=== PATIENT | female | born 1960 | race Caucasian/White ===

== ENCOUNTER 2023-08-26 18:00 | Observation (INO) | payer MEDICARE, SELFPAY ==
[2023-08-26] VITALS (10 sets, daily range): BP systolic 160–200; BP diastolic 79–92; PULSE 52–60; RESP 12–25; TEMP 36.7; O2SAT 92–98; BMI 23.5; BMI 22.3
--- NOTE | 2023-08-26 18:14 | XR_ITS ---
The [address] [address] Patient Name: HEBERT LANE MRN: [id number] date: 1960 Sex: F Assigned Patient Location: ER Current Patient Location: ED.MAIN Accession/Order Number: [id number] Exam Date: 08/26/2023 18:50 Report Date: 08/26/2023 19:13 At the request of: LISA BECERRA Procedure: XR chest 1V EXAM: XR chest 1V at 1852 hours HISTORY: altered MS COMPARISON: None. TECHNIQUE: AP upright portable chest x-ray FINDINGS: Opacity is seen at the right lower lung compatible with an infiltrate. The right upper and the left lung are clear and there is no evidence of an effusion or pneumothorax. The heart is not enlarged and the vasculature is not distended. The osseous structures are grossly intact. XR/XR chest 1V IMPRESSION: The appearance of the right lung base is compatible with an infiltrate. There is no evidence of overt cardiac decompensation. Comparison with a previous study may be helpful in determining the chronicity of these findings. If further evaluation of the chest is clinically indicated at this time than perhaps a CT scan of the chest would be helpful. Electronically authenticated by: PRUDENCIO BENAVIDES Date: 08/26/2023 19:13
--- NOTE | 2023-08-26 18:14 | ECG_ITS ---
The [facility] Test Date: 2023-08-26 Pat Name: HEBERT LANE Department: Room: - Gender: Female Category Analyst: : 1960 Requested By: [id number] Order Number: [id number] Reading MD: JEANETTE ODOM Measurements Intervals [place] Rate: 52 P: 61 NV: 132 QRS: 8 QRSD: 92 T: -34 QT: 510 QTc: 491 Interpretive Statements 1100 Sinus rhythm 2440 Incomplete right bundle branch block 4564 Twave abnormality, possible lateral ischemia 9150 abnormal ECG No previous ECG available for comparison Electronically Signed On 08-27-2023 7:04:57 EDT by JEANETTE ODOM
--- NOTE | 2023-08-26 18:15 | CT_ITS ---
The [address] [address] Patient Name: HEBERT LANE MRN: [id number] date: 1960 Sex: F Assigned Patient Location: ED.MAIN Current Patient Location: Accession/Order Number: [id number] Exam Date: 08/26/2023 18:42 Report Date: 08/26/2023 19:18 At the request of: LISA BECERRA Procedure: CT head/brain wo con EXAM: CT head/brain wo con HISTORY: altered MS COMPARISON: None. TECHNIQUE: Axial CT scans through the head were obtained without IV contrast administration. Dose reduction techniques were achieved by using: automated exposure control and/or adjustment of mA and /or kV according to patient size and/or use of iterative reconstruction technique. FINDINGS: There is no acute intracranial hemorrhage or abnormal extra-axial fluid collection. No mass effect or midline shift is seen. There is no evidence of large acute territorial infarction. There is no hydrocephalus. To the limit of CT, the posterior fossa appears unremarkable. The calvaria and extra cranial soft tissues are unremarkable. The visualized orbits show no abnormal mass. There is small air-fluid level in the right sphenoid sinus and mild mucosal thickening.. Mastoid air cells are clear. CT/CT head/brain wo con IMPRESSION: No acute intracranial process. If there is sufficient clinical concern for acute brain parenchymal pathology, consider MRI for further evaluation. Incidental acute right sphenoid sinusitis. Electronically authenticated by: WILBERT UNLU Date: 08/26/2023 19:18
--- NOTE | 2023-08-26 18:18 | ED.GENADUL1 ---
HPI - General Adult General Chief complaint: Weakness Stated complaint: STROKE Time Seen by Provider: 08/26/23 18:02 Source: patient Mode of arrival: walk-in History of Present Illness HPI narrative: 62-year-old female presents to the emergency department for weakness. She is a poor historian. She states she was at home and she had trouble getting up the stairs because she was weak. She is worried she had a stroke. She doesn't have any localized weakness and doesn't complain of a headache. No vomiting or diarrhea and denies alcohol use. Symptoms seemed to started today. Related Data Allergies Allergy/AdvReac Type Severity Reaction Status Date / Time penicillin G AdvReac Intermediate Verified 08/26/23 18:10 Review of Systems ROS Narrative A ten point review of systems is negative except as noted above. PFSH PFSH Social History Smoking status: Former smoker Exam Narrative Exam Narrative: Nurses note and vital signs reviewed and patient is not hypoxic. General: The patient appears well and in no apparent distress. Patient is resting comfortably on cart. Skin: Warm, dry, no pallor noted. There is no rash noted. Head: Normocephalic, atraumatic Eye: Normal conjunctiva, no drainage Ears, Nose, Mouth, and Throat: oral mucosa is lightly dry. Nares patent. Cardiovascular: Regular Rate and Rhythm Respiratory: Patient is in no distress, no accessory muscle use, lungs are clear to auscultation, no wheezing, rales or rhonchi Back: non-tender GI: soft and nontender Musculoskeletal: The patient has no evidence of calf tenderness, no pitting edema, symmetrical pulses noted bilaterally Neurological: A&O x4, normal speech; upper and lower extremity strength intact. No facial droop. Extraocular movements intact. Speech is slow and slightly difficult to understand. Psychiatric: Cooperative Constitutional Vital Signs, click to edit/add: Last Vital Signs Pulse 52 L 08/26/23 18:10 Resp 12 08/26/23 18:10 BP 197/89 H 08/26/23 18:10 Pulse Ox 98 08/26/23 18:10 O2 Del Method Room Air 08/26/23 18:10 Course Vital Signs Vital signs: Vital Signs Pulse Rate 52 L 08/26/23 18:10 Respiratory Rate 12 08/26/23 18:10 Blood Pressure 197/89 H 08/26/23 18:10 Pulse Oximetry 98 08/26/23 18:10 Oxygen Delivery Method Room Air 08/26/23 18:10 Pulse Rate 52 L 08/26/23 18:10 Respiratory Rate 12 08/26/23 18:10 Blood Pressure 197/89 H 08/26/23 18:10 Pulse Oximetry 98 08/26/23 18:10 Oxygen Delivery Method Room Air 08/26/23 18:10 Medical Decision Making MDM Narrative Medical decision making narrative: tests are ordered and the patient is signed out to Dr. Sharpe at 7 PM at change of shift. Differential Diagnosis Differential Diagnosis: medication side effect, stroke, hypoglycemia, altered mental status ECG Data Attestation: I personally reviewed and interpreted this ECG as follows: (EKG on my interpretation shows normal sinus rhythm without acute change and a rate of 52.) Discharge Plan Discharge Patient Disposition: Still a Patient
[2023-08-26 19:12] LABS: Basophils Absolute Auto 0.1 10^3/uL (0.0-0.1); Basophils Percent Auto 0.3 % (0.2-2.0); Eosinophils Absolute Auto 0.2 10^3/uL (0.0-0.7); Eosinophils Percent Auto 1.2 % (0.9-7.0); Hematocrit 42.8 % (36.0-48.0); Hemoglobin 14.4 g/dL (12.0-16.0); Immature Granulocytes Abs Auto 0.04 10^3/uL (0.00-0.03); Immature Granulocytes Pct Auto 0.3 % (0.0-0.5); Lymphocytes Absolute Auto 3.4 10^3/uL (1.2-3.8); Lymphocytes Percent Auto 23.7 % (20.5-60.0); Mean Corpuscular HGB Conc 33.6 g/dL (29.9-35.2); Mean Corpuscular Hemoglobin 34.2 pg (26.7-34.0); Mean Corpuscular Volume 101.7 fL (81.0-99.0); Mean Platelet Volume 9.5 fL (9.5-13.5); Monocytes Absolute Auto 1.4 10^3/uL (0.3-0.8); Neutrophils Absolute Auto 9.3 10^3/uL (1.4-6.5); Neutrophils Percent Auto 64.5 % (43.0-75.0); Platelet Count 346 10^3/uL (150-450); Red Blood Count 4.21 10^6/uL (4.20-5.40); Red Cell Distribution Width 13.8 % (11.0-15.0); White Blood Count 14.5 10^3/uL (4.0-11.0)
[2023-08-26 19:23] LABS: Anion Gap 10.9; BUN Creatinine Ratio 13.6; Calcium 8.8 mg/dL (8.5-10.1); Carbon Dioxide 30.3 mmol/L (21.0-32.0); Chloride 101 mmol/L (98-107); Estimated GFR (African America >60 (>=60); Estimated GFR (Non-African Ame >60 (>=60); Glucose 88 mg/dL (74-106); Potassium 4.2 mmol/L (3.5-5.1); Sodium 138 mmol/L (136-145)
[2023-08-26 19:31] LABS: Troponin I High Sensitivity 7.7 pg/mL (4.0-51.3)
[2023-08-26 19:49] LABS: Ethanol <3 mg/dL
[2023-08-26 20:03] LABS: Bilirubin Urine NEGATIVE (NEGATIVE); Blood Urine NEGATIVE (NEGATIVE); Clarity Urine CLEAR (CLEAR); Color Urine LT. YELLOW (YELLOW); Glucose Urine UA NEGATIVE (NEGATIVE); Ketones Urine NEGATIVE (NEGATIVE); Leukocyte Esterase Urine NEGATIVE (NEGATIVE); Nitrite Urine NEGATIVE (NEGATIVE); Protein Urine NEGATIVE (NEG/TRACE)
[2023-08-26] MEDS: LEVOFLOXACIN IN DEXTROSE 5 % 750 MG/150 ML IV.SOLN 100 MG IV (20:17)
[2023-08-26 20:19] LABS: Lactate/Lactic Acid 0.4 mmol/L (0.4-2.0)
[2023-08-26 20:21] LABS: Amphetamine Screen Urine NEGATIVE (NEGATIVE); Benzodiazepines Screen Urine NEGATIVE (NEGATIVE); Cannabinoid Screen Urine POSITIVE (NEGATIVE); Cocaine Screen Urine NEGATIVE (NEGATIVE); Methamphetamines Screen Urine NEGATIVE (NEGATIVE); Opiate Screen Urine NEGATIVE (NEGATIVE); Phencyclidine Screen Urine NEGATIVE (NEGATIVE); Tricyclic Antidepressant Urine NEGATIVE (NEGATIVE)
[2023-08-26 20:22] LABS: Barbiturates Screen Urine NEGATIVE (NEGATIVE); Buprenorphine Screen Urine NEGATIVE (NEGATIVE); Methadone Screen Urine NEGATIVE (NEGATIVE); Oxycodone Screen Urine NEGATIVE (NEGATIVE)
[2023-08-26 20:26] LABS: Bacteria Urine NONE SEEN #/HPF (NONE SEEN); Crystals Seen? None Seen #/HPF (None Seen); Mucus Urine NONE SEEN (NONE SEEN); RBC Urine NONE SEEN #/HPF (0-2); Squamous Epithelial Cell Urine RARE #/LPF (NONE/RARE); WBC Urine 0-2 #/HPF (NONE SEEN)
[2023-08-26 20:27] LABS: Cast Seen? NONE SEEN #/LPF (NONE SEEN)
--- NOTE | 2023-08-26 20:45 | XR_ITS ---
The [address] [address] Patient Name: HEBERT LANE MRN: [id number] date: 1960 Sex: F Assigned Patient Location: Current Patient Location: Accession/Order Number: [id number] Exam Date: 08/26/2023 23:59 Report Date: 08/27/2023 06:08 At the request of: FER FREITAS Procedure: XR chest 1V EXAM: XR chest 1V HISTORY: pneumonia COMPARISON: Chest x-ray, 08/26/2023. TECHNIQUE: AP upright portable chest radiograph. FINDINGS: The heart is mildly enlarged. The mediastinal contour and pulmonary vascularity are within normal limits. Right lower lung opacity with silhouetting of the right heart border favors right middle lobe pneumonia. Small effusion cannot be excluded. The right upper lobe and left lung remain clear. XR/XR chest 1V IMPRESSION: Findings favoring continued right middle lobe pneumonia and possible small pleural effusion, without interval change from yesterday. Follow-up to complete resolution is recommended. The lungs remain otherwise clear. Electronically authenticated by: DESMOND MANCERA Date: 08/27/2023 06:08
--- NOTE | 2023-08-26 20:50 | W.PM.TELEPN ---
Progress Note: Subjective Subjective Interval history: PCP is in [facility] but patient not able to provide name at interview. History is limited due to patient needing redirection to answer questions. PAtient lives at home with family and daughter brought to ED. Daughter reported patient complained of weakness. Patient became unable to care for self with associated weakness. though i cannot verify this it appears this has been progressing as oppoesed to acutely today. the patient complains at my interview of a headache and tinnitus but does not further elaborate. She is awake and alert to person place and time and event. + photophobia and phonobia. Ed work was negative for ICH on CT. wbc with lobar infiltrate is noted thus treated with levofloxacin. Urine tox + for cannabinoids and otherwise negative. Lactate and eleectrolytes are negative. PMH: HTN, HLD, fibromyalgia per my discussion with ED. Social hx and ROS are unable to be obtained at present Exam Constitutional Vital Signs, click to edit/add: Last Vital Signs Pulse 54 L 08/26/23 18:40 Resp 21 08/26/23 18:40 BP 160/90 H 08/26/23 19:48 Pulse Ox 94 L 08/26/23 18:40 O2 Del Method Room Air 08/26/23 18:10 Common normals: average body habitus Exam limitations: behavioral limitations Orientation/consciousness: Yes awake HENMT Common normals: normocephalic and head/scalp atraumatic Eye Common normals: PERRL (Nurse found patient photophobic with pinpoint pupils) Neck & C-Spine Common normals: full ROM Respiratory Common normals: normal respiratory effort Cardio Common normals: regular rate and regular rhythm GI Common normals: Normal to inspection, nondistended, normoactive bowel sounds present Neuro [place] Coma Scale: document GCS findings (no slurring of speech or hemiparesis) [place] coma scale eye opening: To sound (photophobia) [place] coma scale verbal response: Orientated [place] coma scale motor response: Obey commands [place] coma scale total score: 14 Sensorium/orientation: awake and alert Meningeal signs: no meningeal signs and nuccal rigidity Motor exam: other (has chronic tremors with spasms while i exam. these are chronic.) Progress Note: Objective Labs Labs: Short CBC 08/26/23 Range/Units 18:15 WBC 14.5 H (4.0-11.0) 10^3/uL Hgb 14.4 (12.0-16.0) g/dL Hct 42.8 (36.0-48.0) % Plt Count 346 (150-450) 10^3/uL BMP 08/26/23 18:15 Sodium 138 Potassium 4.2 Chloride 101 Carbon Dioxide 30.3 BUN 12.0 Creatinine 0.88 Glucose 88 Calcium 8.8 Urine 08/26/23 Range/Units 19:45 Urine Color Lt. yellow (YELLOW) Urine Clarity Clear (CLEAR) Urine pH 6.0 (5.0-9.0) Ur Specific [place] 1.010 (1.005-1.025) Urine Protein Negative (NEG/TRACE) mg/dL Urine Glucose (UA) Negative (NEGATIVE) mg/dL Progress Note: A&P Assessment and Plan (1) Weakness: (2) Pneumonia: Plan 1Pneumonia: Elevated WBC with findings on CXR. Will follow cxs as well as continue levofloxacin whilst daily labs and respiratory monitoring. I do not believe she is septic and as her mentation improves we can advance her diet as tolerated while giving IVF at this time. 2Weakness/headache/tinnitus: with her pupillary response, though alert and oriented, has complaints with bizarre behavior I have ordered an MRI of the brain. I do not suspect with her pupillary response pesticide toxicity. SAH is considered though low suspicion and with CT negative would not do immediate LP. Medication reaction is also considered and her home meds can help with the tinnititus (though nsaid she is on can also contirbute). Will avoid opoids for ADHIKARI at this time. Home meds for her chornic medical complaints and will use GI/DVT prophylaxis as per hospitalist admission orders. She will be OBS telemetry Should daughter contact health care team i will readily follow up with her for more information. Telemedicine Attestation Telemedicine Attestation I conducted this encounter from [Home office in [facility]] via secure live, [id number] video conference with the patient, located at [facility] with [Josselin]. Prior to the interview, the risks and benefits of telemedicine were discussed with the patient and verbal consent was obtained.
[2023-08-26] MEDS: 0.9 % SODIUM CHLORIDE 1,000 ML 100 ML IV (23:58)
[2023-08-27] VITALS (21 sets, daily range): BP systolic 107–184; BP diastolic 62–81; PULSE 50–70; RESP 17–22; TEMP 36.6–36.7; O2SAT 90–99
[2023-08-27] MEDS: TIZANIDINE HCL 4 MG TABLET PO ×4 (00:21→21:12)
[2023-08-27] MEDS: GABAPENTIN 300 MG CAPSULE 600 MG PO ×3 (00:21→13:04)
[2023-08-27] MEDS: ATORVASTATIN CALCIUM 20 MG TABLET PO ×2 (00:21→21:12)
[2023-08-27] MEDS: CARVEDILOL 6.25 MG TABLET PO ×3 (00:22→21:12)
[2023-08-27 05:42] LABS: Basophils Absolute Auto 0.1 10^3/uL (0.0-0.1); Basophils Percent Auto 0.5 % (0.2-2.0); Eosinophils Absolute Auto 0.1 10^3/uL (0.0-0.7); Eosinophils Percent Auto 0.9 % (0.9-7.0); Hematocrit 38.6 % (36.0-48.0); Immature Granulocytes Abs Auto 0.07 10^3/uL (0.00-0.03); Immature Granulocytes Pct Auto 0.5 % (0.0-0.5); Lymphocytes Absolute Auto 2.6 10^3/uL (1.2-3.8); Lymphocytes Percent Auto 19.8 % (20.5-60.0); Mean Corpuscular HGB Conc 33.7 g/dL (29.9-35.2); Mean Corpuscular Hemoglobin 34.5 pg (26.7-34.0); Mean Corpuscular Volume 102.4 fL (81.0-99.0); Monocytes Absolute Auto 1.4 10^3/uL (0.3-0.8); Monocytes Percent Auto 10.3 % (1.7-12.0); Platelet Count 323 10^3/uL (150-450); Red Blood Count 3.77 10^6/uL (4.20-5.40); Red Cell Distribution Width 13.9 % (11.0-15.0); White Blood Count 13.2 10^3/uL (4.0-11.0)
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
--- NOTE | 2023-08-27 06:12 | PC.NURSE ---
Patient became angry at this public relations writer for her Gabapentin prescription. I explained to patient her order reads 600 MG . She became agitated with this public relations writer, raising her voice and yelling your a professional, your not allowed to change my prescription . I am supposed to take 2, 600 mg tablets at a time equaling 1200mg at a time This RN explained I am following the Doctors orders hat they placed. Patient raised voice even more yelling Your not allowed to do that . This public relations writer looked at home meds and rx bottle says take 1 capsule four times a day as needed. 600MG tablets. This RN explained the Doctor will be in soon for rounds and we can bring it back up with him. Call light within reach, all four rails up, bed alarm on.
[2023-08-27 06:23] LABS: Alanine Aminotransferase 20 U/L (14-59); Albumin Level 2.9 g/dL (3.4-5.0); Alkaline Phosphatase 80 U/L (46-116); Anion Gap 9.6; Aspartate Amino Transferase 14 U/L (15-37); BUN Creatinine Ratio 12.5; Bilirubin Total 0.5 mg/dL (0.2-1.0); Calcium 8.3 mg/dL (8.5-10.1); Carbon Dioxide 29.3 mmol/L (21.0-32.0); Chloride 105 mmol/L (98-107); Estimated GFR (African America >60 (>=60); Estimated GFR (Non-African Ame >60 (>=60); Glucose 84 mg/dL (74-106); Magnesium 1.8 mg/dL (1.8-2.4); Potassium 3.9 mmol/L (3.5-5.1); Sodium 140 mmol/L (136-145); Total Protein 5.9 g/dL (6.4-8.2)
[2023-08-27] MEDS: AMLODIPINE BESYLATE 5 MG TABLET 2.5 MG PO (09:31)
[2023-08-27] MEDS: DULOXETINE HCL 60 MG CAPSULE.DR PO (09:32)
[2023-08-27] MEDS: ENOXAPARIN SODIUM 40 MG/0.4 ML SYRINGE SUBQ (09:32)
[2023-08-27] MEDS: HYDRALAZINE HCL 20 MG/ML VIAL 10 MG IVP (09:35)
[2023-08-27 09:38] LABS: Estimated Average Glucose 114 mg/dL; Glycohemoglobin A1C 5.6 % (4.5-6.2)
[2023-08-27 09:48] LABS: Chol HDL Ratio 2.9; Cholesterol 124 mg/dL (<=200); HDL Cholesterol 43 mg/dL (40-60); LDL Cholesterol Calculated 56.6 mg/dL; Thyroid Stimulating Hormone 0.734 uIU/mL (0.358-3.740); Triglycerides 122 mg/dL (<=150); VLDL CHOLESTEROL 24.4 mg/dL
[2023-08-27 11:13] LABS: Ammonia 24 umol/L (11-32)
--- NOTE | 2023-08-27 11:29 | SWNOTE1 ---
SW met with pt to discuss dc need. Pt was drowsy, knew she was at hospital, but stated she has a headache. SW did ask if she was alright with SW asking questions or if she wanted SW to wait. Pt voiced being ok to move forward with questions. Pt is living at her daughter's and sleeping on the couch. Pt is trying to move to [place] into metro housing, has been working on this, but was told it would be a year. SW to look over housing information and provide pt with the list SW has. Pt stated it is hard to get to [place] to talk with jobs and family services in regards to metro housing, SW recommended calling to see if they can assist over the phone. SW to provide numbers as well and transport information. Pt has expressed being frustrated as she is living with her daughter and wants her own place. SW asked pt if she is feeling depressed and if she has been to counseling? Pt voiced she was 13 years ago, but she is NOT interested in going back and does not want any phone numbers. SW did let her know it may be beneficial to go to counseling again to help her through situation. Pt is not interested. SW also addressed pt being positive for marijuana. Pt voiced she uses marijuana for pain. SW asked where the pain was and she stated everywhere. SW asked if she has medical marijuana card and she does not. Pt has no plans of stopping marijuana use. SW to bring housing resources and transport resources.
[2023-08-27 11:44] LABS: ABG PCO2 39.1 mmHg (35.0-45.0); Allen Test POS (POSITIVE); Base Excess ABG 5.4 mmol/L (-2.0-2.0); O2 Mode ROOM AIR; Oxygen Saturation ABG 93.4 %; PO2 ABG 58.2 mmHg (80.0-100.0); pH ABG 7.478 (7.350-7.450)
[2023-08-27 11:45] LABS: Puncture Site LEFT RADIAL
[2023-08-27] MEDS: ARIPIPRAZOLE 5 MG TABLET PO (11:47)
--- NOTE | 2023-08-27 11:47 | CT_ITS ---
[address] [address] Patient Name: HEBERT LANE MRN: [id number] date: 1960 Sex: F Assigned Patient Location: Current Patient Location: Accession/Order Number: [id number] Exam Date: 08/27/2023 13:48 Report Date: 08/27/2023 14:15 At the request of: VU BURR Procedure: CT chest w con EXAM: CT chest w con; [id number] REASON FOR EXAM: hypoxia TECHNIQUE: Helical CT images of the chest were obtained after the administration of IV contrast. Multiplanar reformats and maximum intensity projection images were generated at the scanner. Dose reduction technique used: Automated exposure control and/or adjustment of the mA and/or kV according to patient size and/or use of iterative reconstruction technique. COMPARISON: Chest x-rays 08/27/2023 and 08/26/2023. FINDINGS: Chest: Support devices: None. Visualized Thyroid: No nodules. Chest wall: Within normal limits. Emiliana/mediastinum/esophagus: No mass. Thoracic lymph nodes: No enlarged supraclavicular, mediastinal, hilar or axillary lymph nodes. Heart and vasculature: -No pericardial effusion or aortic aneurysm. -No pulmonary embolism. -No aortic dissection. Visualized portions of the upper abdomen: Within normal limits. Musculoskeletal: No acute abnormality or suspicious osseous lesion. Lungs/airways: -No significant nodule or infiltrate. -The central airways are patent. Pleura: -Large fat-containing diaphragmatic hernia arising from the anteromedial aspect of the right hemidiaphragm (for example series 2 image 92 and series 6 image 14). -No pleural effusion or pneumothorax. CT/CT chest w con IMPRESSION: 1. 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 2. No evidence of pneumonia or other acute cardiopulmonary abnormality. Electronically authenticated by: ARPITA CHESTER Date: 08/27/2023 14:15
--- NOTE | 2023-08-27 12:07 | P.HP_ITS ---
patient was also seen and examined by me at the time of admission note. lab and radiology Results, charts, notes were also reviewed and i agree with the above findings. H&P: HPI History of Present Illness Chief complaint: Ac Encephalopathy, CAP, Gen. Weakness Narrative: Date/Time of exam: 08/27/23 1015 This is a 62-year-old female patient with a past medical history as outlined below including fibromyalgia/chronic pain, hypertension, CAD with history of STEMI, and chronic tobacco abuse; who was brought to the ED by family member yesterday evening with complaints of possible stroke. The patient reportedly was increasingly weak and unable to ambulate normally and felt she may be having a stroke. She presented to the ED for further evaluation Work-up in the ED was negative for acute intracranial abnormality on CT other than incidental finding of sphenoid sinusitis. Chest x-ray revealed right middle lobe pneumonia. Labs revealed leukocytosis (14.5) but were otherwise unremarkable. The patient was noted to be somewhat confused and a poor historian of unclear etiology or chronicity. She was admitted to the hospitalist service under observation for community-acquired pneumonia, acute metabolic encephalopathy, and further CVA work-up including MRI of the brain. At the time of my exam the patient is resting in bed with her eyes closed. She answers questions mostly appropriately, but does not fully open her eyes throughout my exam. She states that her speech is abnormal. She has difficulty describing her abnormality of speech but appears that it is somewhat slurred although true dysarthria is not appreciated on exam. The patient is unable to describe symptoms that are acute versus chronic or time of symptom onset. Her behavior is more consistent with intoxication than dysarthria or CVA Sequelae, but this cannot be definitively ruled out. UDS in the ED was only positive for cannabinoids so acute intoxication is not clinically suspected at this time. We will obtain an ABG and an ammonia level to rule out metabolic etiology of the patient's altered mentation. We will also obtain a CT of the chest to more fully evaluate her pneumonia versus other pathologies. ADDENDUM 1400: The pt reports that she has not been able to refill her Abilify for an unknown period of time. We clinically suspect that her encephalopathy, agitation, and irritability may be d/t acute withdrawal symptoms from Abilify. Review of Systems ROS Status of ROS 10 or more systems reviewed and unremarkable except as noted in history and below PFSH PFSH Medical History (Updated 08/28/23 @ 07:38 by Natalie Yip NP) CAD (coronary artery disease) ?I25.10 - Atherosclerotic heart disease of [place] coronary artery without angina pectoris (ICD-10) Fibromyalgia ?M79.7 - Fibromyalgia (ICD-10) Hypertension ?I10 - Essential (primary) hypertension (ICD-10) Neuropathy ?G62.9 - Polyneuropathy, unspecified (ICD-10) Scoliosis ?M41.9 - Scoliosis, unspecified (ICD-10) Spinal stenosis ?M48.00 - Spinal stenosis, site unspecified (ICD-10) ST elevation (STEMI) myocardial infarction of unspecified site ?I21.3 - ST elevation (STEMI) myocardial infarction of unspecified site (ICD- 10) Tic disorder, unspecified ?F95.9 - Tic disorder, unspecified (ICD-10) Surgical History (Updated 08/28/23 @ 07:38 by Natalie Yip NP) H/O eye surgery ?Z98.890 - Other specified postprocedural states (ICD-10) H/O tubal ligation ?Z98.51 - Tubal ligation status (ICD-10) History of foot surgery ?Z98.890 - Other specified postprocedural states (ICD-10) Family History (Updated 08/26/23 @ 22:26 by Josselin Cyr RN) Grandmother Family history of CHF (congestive heart failure) Mother Family history of stroke Social History (Updated 08/27/23 @ 05:54 by Josselin Cyr RN) Within the past year, how often did you have a drink containing alcohol: never Score interpretation: A score less than 3 is consistent with normal alcohol consumption. Smoking status: Former smoker Non-prescribed substance use: cannabis (any form) Previous occupational history: N/A Highest level of school completed/degree received: 12th grade, no diploma Are you now , , , , never or living with a partner: In a typical week, how many times do you talk on the telephone with family, friends, or neighbors: 3 or more times per week How often do you get together with friends or relatives: 3 or more times per week How often do you attend anglican or lutheran services: never Little interest or pleasure in doing things: several days Feeling down, depressed, or hopeless: several days Feel stressed/tense/nervous/anxious/difficulty sleeping: rather much Life stressor details: Boyfriend kicks her out Gender Identity: female Meds Home Medications and Allergies Home Medications Medication Instructions Recorded Confirmed Type acetaminophen 650 mg 650 mg PO Q8H PRN pain 08/26/23 08/26/23 History tablet,extended release (8 Hour Pain Reliever) amlodipine 2.5 mg tablet 2.5 mg PO DAILY 08/26/23 08/27/23 History atorvastatin 20 mg tablet 20 mg PO DAILY 08/26/23 08/26/23 History carvedilol 6.25 mg tablet 6.25 mg PO Q12H 08/26/23 08/26/23 History celecoxib 100 mg capsule 100 mg PO Q24H 08/26/23 08/26/23 History duloxetine 60 mg capsule,delayed 60 mg PO DAILY 08/26/23 08/26/23 History release gabapentin 600 mg tablet 600 mg PO QID 08/26/23 08/27/23 History tizanidine 4 mg tablet 4 mg PO Q8H PRN muscle spasticity 08/26/23 08/27/23 History aripiprazole 5 mg tablet (Abilify) 5 mg PO DAILY 08/27/23 08/27/23 History Allergies Allergy/AdvReac Type Severity Reaction Status Date / Time penicillin G AdvReac Intermediate Verified 08/26/23 18:10 Exam Constitutional Vital Signs, click to edit/add: Last Vital Signs Temp 97.9 F 08/27/23 05:11 Pulse 70 08/27/23 11:15 Resp 20 08/27/23 11:15 BP 155/79 H 08/27/23 11:15 Pulse Ox 94 L 08/27/23 11:15 O2 Del Method Room Air 08/27/23 11:15 Common normals: no apparent distress and well nourished General appearance: cooperative, anxious and lethargic [facility] Common normals: normocephalic, head/scalp atraumatic, hearing grossly normal bilaterally, external ears normal, external nose normal and moist oral mucous membranes Head and scalp: normocephalic and atraumatic Face and sinus: normal facial exam Nose: external nose normal External ear: external ears normal Eye Common normals: PERRL, EOMs intact bilaterally, conjunctivae normal and no scleral icterus General eye: normal appearance of both eyes Alignment: alignment normal Eyelid: eyelids normal Conjunctiva: conjunctiva(e) normal Pupil: PERRL Neck & C-Spine Common normals: full ROM, supple and no JVD Chest Common normals: inspection of chest normal Chest: symmetrical chest wall rise Respiratory Common normals: normal respiratory effort, no retractions and no use of accessory muscles Effort & inspection: able to speak in complete sentences Auscultation: wheezes (Scattered throughout mild I&E) and diminished lung sounds (RML) Cardio Common normals: no JVD, regular rate, regular rhythm, S1 normal heart sound, S2 normal heart sound, no gallops, no clicks, no murmurs, no rub and peripheral pulses 2+ throughout Rate: regular rate Rhythm: regular rhythm Heart sounds: S1 normal and S2 normal Peripheral pulses: pulses 2+ throughout GI Common normals: Normal to inspection, nondistended, normoactive bowel sounds present, soft to palpation, non-tender, no hepatosplenomegaly, no masses and no bruits Palpation: soft and no hepatosplenomegaly Bladder/kidney exam: bladder normal to palpation Back & Pelvis Common normals: thoracic and lumbar spine normal to inspection Extremity Common normals: normal capillary refill and no pedal edema General: normal exam except as noted; no clubbing and no cyanosis Neuro [place] Coma Scale: GCS not evaluated Common normals: CN's II-XII intact bilaterally, moves all extremities, no focal motor deficits and no sensory deficits noted Sensorium/orientation: lethargic and somnolent Speech: abnormal speech Details: slurred (more consistent w/ intoxication, rather than true dysarthria) Motor exam: strength 5/5 throughout Psych Appearance: grossly normal Attitude: agitated (intermittently w/ painful lab draws) Speech: slurred Mood and affect: irritable and flat affect Thought process: disorganized and confused Attention/concentration: attention grossly impaired Memory/cognition: memory grossly impaired (Very poor recall of recent events) Impaired memory type(s): short term Insight: limited Judgement: limited Results Labs Labs: Short CBC 08/26/23 08/27/23 Range/Units 18:15 05:06 WBC 14.5 H 13.2 H (4.0-11.0) 10^3/uL Hgb 14.4 13.0 (12.0-16.0) g/dL Hct 42.8 38.6 (36.0-48.0) % Plt Count 346 323 (150-450) 10^3/uL BMP 08/26/23 08/27/23 18:15 05:02 Sodium 138 140 Potassium 4.2 3.9 Chloride 101 105 Carbon Dioxide 30.3 29.3 BUN 12.0 11.0 Creatinine 0.88 0.88 Glucose 88 84 Calcium 8.8 8.3 L Liver Function 08/27/23 Range/Units 05:02 Total Bilirubin 0.5 (0.2-1.0) mg/dL AST 14 L (15-37) U/L ALT 20 (14-59) U/L Alkaline Phosphatase 80 (46-116) U/L Albumin 2.9 L (3.4-5.0) g/dL Urine 08/26/23 Range/Units 19:45 Urine Color Lt. yellow (YELLOW) Urine Clarity Clear (CLEAR) Urine pH 6.0 (5.0-9.0) Ur Specific [place] 1.010 (1.005-1.025) Urine Protein Negative (NEG/TRACE) mg/dL Urine Glucose (UA) Negative (NEGATIVE) mg/dL ABG ABG results: 08/27/23 11:32 ABG pH 7.478 H ABG pCO2 39.1 ABG pO2 58.2 L ABG HCO3 29.0 H ABG O2 Saturation 93.4 ABG Base Excess 5.4 H Pulse Oximetry Attestation: I have reviewed the pertinent pulse oximetry results. Assessment and Plan Assessment and Plan (1) Pneumonia: Assessment and Plan: ACUTE * Adm observation * RML infiltrate on CXR w/ corresponding leukocytosis * Pt afebrile, BP stable, Lactic acid WNL - Sepsis not clinically suspected at this time * Borderline hypoxia but not requiring O2 supplementation to date * O2 prn to keep sats > 90% * ABG - PO2 58, but sats remain above 90% * Continue Levaquin as initiated in the ED - convert to PO as equally bioavailable * Consider CT chest today pending clinical course * Repeat CXR in AM to monitor * CBC, CMP daily (2) Acute sinus infection: Assessment and Plan: ACUTE * Incidental finding on CT brain * Pt c/o persistent headache which may be related to acute sinusitis * Adequate treatment w/ Levaquin as noted above * Add Flonase d/t c/o of congestion (3) Weakness: Assessment and Plan: ACUTE * Unclear etiology - r/o acute cva vs other metabolic or iatrogenic causes including med SE * No focal deficits noted on exam * Equivocal slurred speech not highly correlative w/ neurologic etiology * MRI brain today * PT/OT consult * Consider SNF for strengthening at discharge pending clinical course * Generalized weakness complicated by chronic pain/fibromialgia (4) Acute metabolic encephalopathy: Assessment and Plan: ACUTE * Unclear etiology * No evidence of acute intoxication on work up and sx are not highly suspicious for acute CVA * MRI brain today for definitive CVA work up * Add ABG to r/o CO2 narcosis and Ammonia level to AM labs - treat as indicated ADDENDUM 1400: Pt reports Abilify prescription has run out and she's been unable to refill. Unknown how long she has been off of abilify, but her encephalopathy, irritability, and restlessness could be 2/2 to acute withdrawal symptoms. Abilify has been ordered per her previous regimen. Monitor response (5) Fibromyalgia: Assessment and Plan: CHRONIC * Continue home gabapentin and xanaflex (6) CAD (coronary artery disease): Assessment and Plan: CHRONIC * Continue home amlodpine, statin, Coreg (7) Tic disorder, unspecified: Assessment and Plan: CHRONIC * Continue home abilify * abrupt discontinuation of Abilify is possible etiology of her metabolic e ncephalopathy
[2023-08-27] MEDS: DIAZEPAM 5 MG/ML - 2 ML INJ SYRINGE IV (12:46)
--- NOTE | 2023-08-27 12:46 | CM.NOTE ---
Rounds made with Dr. Patel, discussed with pt about further testing and plan of care. No discharge today.
[2023-08-27] MEDS: 0.9 % SODIUM CHLORIDE 1,000 ML 20 ML IV (12:47)
--- NOTE | 2023-08-27 13:58 | SWNOTE1 ---
SW spoke to nurse practitioner due to concerns about pt's living situation. SW did let her know SW did address with pt, and SW will address with daughter as well. GRAIN ELEVATOR SUPERINTENDENT concerned possible need for placement, but pt may not be agreeable.
--- NOTE | 2023-08-27 14:40 | SWNOTE1 ---
Pt has nobody listed to contact in computer system or on face sheet. SW to check paper chart.
--- NOTE | 2023-08-27 15:27 | SWNOTE1 ---
I spoke with 220's grand- daughter (that is who she lives with), Everything is going fine at home for them. We got disconnected and I am going to call her back. She said her biggest concern is that she is sleeping more and how she has been talking and not being able to get around very well, weakness. She said she had hand foot and mouth 2 weeks ago and she went to live with a friend in [place]. The grand-daughter does have little children so she did not want her to stay while she had HFM. She is working on getting housing in [place]. The grand-daughter did ask what is going on medically with her, I let her know we are attempting to figure this out. SW did let grand-daughter know pt has been getting agitated.
[2023-08-27] MEDS: IPRATROPIUM/ALBUTEROL SULFATE 3 ML AMPUL.NEB IH ×3 (15:32→23:40)
--- NOTE | 2023-08-27 16:12 | RESP.RT ---
Patient is to be on 2L via NC per doctors request due to ABG results. I went into patient's room to give treatment and she was not wearing O2. Talked to the patient and patient agreed to wear the O2.
--- NOTE | 2023-08-27 16:24 | CM.NOTE ---
Medicare Outpatient Observation Notice discussed with pt, pt verbalizes understanding and signs paper. Original given to pt and copy placed in pt's chart.
[2023-08-27] MEDS: TRAMADOL HCL 50 MG TABLET 100 MG PO (16:34)
[2023-08-27 17:32] LABS: Adenovirus NOT DETECTED (NOT DETECTE); Bordetella parapertussis NOT DETECTED (NOT DETECTE); Coronavirus 229E NOT DETECTED (NOT DETECTE); Coronavirus HKU1 NOT DETECTED (NOT DETECTE); Coronavirus NL63 NOT DETECTED (NOT DETECTE); Coronavirus OC43 NOT DETECTED (NOT DETECTE); Human Metapneumovirus NOT DETECTED (NOT DETECTE); Human Rhinovirus/Enterovirus NOT DETECTED (NOT DETECTE); Influenza A NOT DETECTED (NOT DETECTE); Influenza B NOT DETECTED (NOT DETECTE); Mycoplasma pneumoniae NOT DETECTED (NOT DETECTE); Parainfluenza Virus 1 NOT DETECTED (NOT DETECTE); Parainfluenza Virus 2 NOT DETECTED (NOT DETECTE); Parainfluenza Virus 3 NOT DETECTED (NOT DETECTE); Parainfluenza Virus 4 NOT DETECTED (NOT DETECTE); Respiratory Syncytial Virus NOT DETECTED (NOT DETECTE); SARS-CoV-2 NOT DETECTED (NOT DETECTE)
[2023-08-27] MEDS: LEVOFLOXACIN 750 MG TABLET PO (19:31)
[2023-08-27] MEDS: GABAPENTIN 400 MG CAPSULE 1200 MG PO (21:12)
[2023-08-27] MEDS: FLUTICASONE PROPIONATE 50 MCG NASAL SPRAY 1 SPRAY NS (21:12)
--- NOTE | 2023-08-27 23:38 | MR_ITS ---
The [address] [address] Patient Name: HEBERT LANE MRN: [id number] date: 1960 Sex: F Assigned Patient Location: [place] Current Patient Location: [place] Accession/Order Number: [id number] Exam Date: 08/27/2023 13:00 Report Date: 08/27/2023 14:04 At the request of: FER FREITAS Procedure: MR head/brain wo con EXAM: MR head/brain wo con CLINICAL INDICATION: tinnitus, headache, weakness following work up CVA COMPARISON: CT head 08/26/2023 TECHNIQUE/PROTOCOL: Standard noncontrast protocol brain MRI performed (Sagittal T1 with axial T1, T2, GRE, FLAIR, and diffusion-weighted imaging). FINDINGS: Evaluation is limited due to mild patient motion artifact. No restricted diffusion, extra-axial fluid collection, hydrocephalus, midline shift, or other mass effect. Intracranial flow voids are maintained. Scattered small hyperintense T2/FLAIR periventricular and subcortical foci are likely on the basis of chronic microvascular angiopathic changes. Mild symmetric global volume loss without lobar predominance. Normal marrow signal. No soft tissue abnormalities. Mild scattered paranasal sinus mucosal thickening. Trace left mastoid effusion. MR/MR head/brain wo con IMPRESSION: No acute intracranial process or recent infarction. Electronically authenticated by: DOMINIQUE PATRICIO Date: 08/27/2023 14:04
[2023-08-28] VITALS (10 sets, daily range): BP systolic 91–166; BP diastolic 47–77; PULSE 45–64; RESP 16; TEMP 36.5; O2SAT 90–93
[2023-08-28] MEDS: ACETAMINOPHEN 325 MG TABLET 650 MG PO (03:28)
[2023-08-28] MEDS: TRAMADOL HCL 50 MG TABLET 100 MG PO ×2 (03:28→09:27)
--- NOTE | 2023-08-28 05:00 | XR_ITS ---
The [address] [address] Patient Name: HEBERT LANE MRN: [id number] date: 1960 Sex: F Assigned Patient Location: [place] Current Patient Location: [place] Accession/Order Number: [id number] Exam Date: 08/28/2023 05:03 Report Date: 08/28/2023 07:21 At the request of: VU BURR Procedure: XR chest 1V EXAM: XR chest 1V HISTORY: SOB, Pneumonia surveillance COMPARISON: 08/27/2023 TECHNIQUE: AP portable FINDINGS: LUNGS: Moderate right basilar infiltrate partially obscuring the right heart border, stable. The left lung is clear. VASCULATURE: No increased pulmonary vasculature. PLEURA: No pneumothorax, effusion, or pleural thickening. CARDIAC: Mild stable cardiomegaly MEDIASTINUM: No visible mass or adenopathy. BONES: No fracture or visible bone lesion. OTHER: Negative. XR/XR chest 1V IMPRESSION: Stable right middle lobe pneumonia Electronically authenticated by: ARON NELSON Date: 08/28/2023 07:21
[2023-08-28] MEDS: TIZANIDINE HCL 4 MG TABLET PO (05:06)
[2023-08-28 05:21] LABS: Basophils Absolute Auto 0.1 10^3/uL (0.0-0.1); Basophils Percent Auto 0.4 % (0.2-2.0); Eosinophils Absolute Auto 0.1 10^3/uL (0.0-0.7); Hematocrit 36.8 % (36.0-48.0); Hemoglobin 12.2 g/dL (12.0-16.0); Immature Granulocytes Abs Auto 0.04 10^3/uL (0.00-0.03); Immature Granulocytes Pct Auto 0.4 % (0.0-0.5); Lymphocytes Absolute Auto 2.8 10^3/uL (1.2-3.8); Lymphocytes Percent Auto 24.3 % (20.5-60.0); Mean Corpuscular HGB Conc 33.2 g/dL (29.9-35.2); Mean Corpuscular Hemoglobin 34.1 pg (26.7-34.0); Mean Corpuscular Volume 102.8 fL (81.0-99.0); Monocytes Absolute Auto 1.4 10^3/uL (0.3-0.8); Monocytes Percent Auto 12.2 % (1.7-12.0); Neutrophils Percent Auto 61.7 % (43.0-75.0); Platelet Count 279 10^3/uL (150-450); Red Blood Count 3.58 10^6/uL (4.20-5.40); Red Cell Distribution Width 13.8 % (11.0-15.0); White Blood Count 11.3 10^3/uL (4.0-11.0)
[2023-08-28 05:42] LABS: Alanine Aminotransferase 17 U/L (14-59); Albumin Globulin Ratio 0.9; Albumin Level 2.7 g/dL (3.4-5.0); Alkaline Phosphatase 78 U/L (46-116); Anion Gap 7.3; Aspartate Amino Transferase 10 U/L (15-37); Bilirubin Total 0.3 mg/dL (0.2-1.0); Calcium 8.5 mg/dL (8.5-10.1); Carbon Dioxide 30.4 mmol/L (21.0-32.0); Chloride 103 mmol/L (98-107); Estimated GFR (African America >60 (>=60); Estimated GFR (Non-African Ame 56 (>=60); Glucose 112 mg/dL (74-106); Potassium 3.7 mmol/L (3.5-5.1); Sodium 137 mmol/L (136-145); Total Protein 5.7 g/dL (6.4-8.2)
[2023-08-28] MEDS: IPRATROPIUM/ALBUTEROL SULFATE 3 ML AMPUL.NEB IH ×2 (07:43→11:28)
[2023-08-28] MEDS: CARVEDILOL 6.25 MG TABLET PO (09:27)
[2023-08-28] MEDS: GABAPENTIN 400 MG CAPSULE 1200 MG PO (09:28)
[2023-08-28] MEDS: AMLODIPINE BESYLATE 5 MG TABLET 2.5 MG PO (09:28)
[2023-08-28] MEDS: DULOXETINE HCL 60 MG CAPSULE.DR PO (09:28)
[2023-08-28] MEDS: ARIPIPRAZOLE 5 MG TABLET PO (09:28)
[2023-08-28] MEDS: FLUTICASONE PROPIONATE 50 MCG NASAL SPRAY 1 SPRAY NS (09:29)
--- NOTE | 2023-08-28 10:05 | P.DS_ITS ---
patient was also seen and evaluated, examined by me at the time of discharge. All chart, labs, radiology findings were reviewed and I agree with the above findings. DS: Providers Provider Date of admission: 08/26/23 21:45 Primary care physician: Non-Staff PhysicianMD Admitting clinician: Natalie Yip Attending physician on admission: Jacqueline Patel Consults: 08/26/23 Consult to Iron Worker Routine Reason for consult:: Mental Health 08/27/23 12:29 Occupational Therapy Eval and Treat Routine Reason for consultation: generalized weakness, self-care deficit Has provider been notified: No Physical Therapy Eval and Treat Routine Reason for consultation: generalized weakness, self-care deficit Has provider been notified: No 08/28/23 07:48 Consult to Iron Worker Routine Reason for consult:: Other Other reason:: Unable to fill Abilify scrip, but last filled on 08/10/23. Confirm filled Attending physician on discharge: Jacqueline Patel Discharging clinician: Natalie Yip Anticipated date of discharge: 08/28/23 DS: Diagnosis Discharge Diagnosis (1) Pneumonia: (2) Acute sinus infection: (3) Weakness: (4) Acute metabolic encephalopathy: (5) Withdrawal complaint: (6) Diaphragmatic hernia: DS: Summary Hospital Course Hospital Course: The patient was admitted with generalized weakness, acute metabolic e ncephalopathy, R sphenoid sinusitis, and right middle lobe pneumonia. She was treated with IV and p.o. Levaquin and O2 supplementation. Her leukocytosis is trended down and is near normal at the time of discharge. She has been weaned off of O2 supplementation and remained stable around 90%. Due to the patient's long-term tobacco abuse history, we suspect chronic COPD that appears well compensated at this time. A full neuro work-up including CT and MRI of the head were obtained to rule out neurologic etiology of the patient's acute encephalopathy and generalized weakness. These were negative for acute abnormalities. We have little clinical suspicion for an acute neurologic complaint. The patient has stopped taking her Abilify because her prescription ran out. Length of time off of Abilify is unclear at this time but acute Abilify withdrawal could explain some of her symptoms including encephalopathy, agitation, and irritability. At the time of discharge the patient's encephalo ivana appears to be completely resolved and her agitation and irritability are significantly improved. We will renew her Abilify prescription to ensure she is able to refill this as needed. The patient's Celebrex was recently reduced by her PCP and the patient has significant amount of subsequent chronic pain. We will give a very short course of tramadol to improve her pain and have her follow-up with her PCP as soon as possible for definitive management and review of her celebrex dosing. Although CXR noted a RML infiltrate, a follow up CT chest noted a large fat-containing diaphragmatic hernia which accounts for the opacity noted on CXR. No evidence of pneumonia or other acute cardiopulmonary abnormality was noted. We still stuspect possible COPD exacerbation and thus will complete a 10 day course of Levaquin for possible underlying bronchitis in addition to her acute sinusitis. We will also give a short burst of steroid which should also assist w/ pain management. She is being discharged home in stable condition and she will follow-up with her PCP within 5 to 7 days. We defer to her PCP if referral to surgery for the diaphragmatic hernia is advised. Home Health services have been ordered at discharge for close nursing monitoring of her encephalopathy and medications. She should also have PT services for generalized weakness/strengthening. Time spent discussing smoking cessation with patient: 3 to 10 minutes Status at Discharge Functional status at discharge: independent ambulation Overall status at discharge: patient is back to baseline Time Spent with Patient Time attestation: Total time spent providing and/or coordinating discharge services: Time spent: greater than 30 minutes Specific discharge activities: Explanation of diagnosis, Abilify w/drawal symptoms, plan of follow up care, new prescriptions Exam Constitutional Vital Signs, click to edit/add: Last Vital Signs Temp 97.7 F 08/28/23 04:19 Pulse 64 08/28/23 09:59 Resp 16 08/28/23 04:19 BP 166/77 H 08/28/23 08:52 Pulse Ox 90 L 08/28/23 08:52 O2 Del Method Room Air 08/28/23 08:52 O2 Flow Rate 2 08/28/23 04:19 Common normals: no apparent distress, oriented x3 and alert General appearance: cooperative Orientation/consciousness: Yes awake HENMT Common normals: normocephalic and head/scalp atraumatic Head and scalp: normocephalic and atraumatic Eye Common normals: PERRL, EOMs intact bilaterally, conjunctivae normal and no scleral icterus Conjunctiva: conjunctiva(e) normal Pupil: PERRL Neck & C-Spine Common normals: no JVD Respiratory Common normals: normal respiratory effort, no use of accessory muscles and clear to auscultation bilaterally Effort & inspection: able to speak in complete sentences and symmetric chest movement Auscultation: clear to auscultation bilaterally Cardio Common normals: no JVD, regular rate, regular rhythm, S1 normal heart sound, S2 normal heart sound, no gallops, no clicks, no murmurs, no rub and peripheral pulses 2+ throughout Rate: regular rate Rhythm: regular rhythm Heart sounds: S1 normal and S2 normal Peripheral pulses: pulses 2+ throughout GI Common normals: Normal to inspection, nondistended, normoactive bowel sounds present, soft to palpation and non-tender Palpation: soft Bladder/kidney exam: bladder normal to palpation Extremity Common normals: normal to inspection, full ROM, normal capillary refill and no pedal edema General: no clubbing and no cyanosis Neuro Common normals: oriented x3, CN's II-XII intact bilaterally, moves all extremities, no focal motor deficits and no sensory deficits noted Sensorium/orientation: awake and alert Speech: speech normal Psych Common normals: mental status grossly normal and activity/motor behavior normal Appearance: grossly normal DS: Data Data Completed and Pending Labs on day of discharge: Labs from last 24 hours 08/28/23 08/27/23 08/27/23 04:55 17:24 11:32 WBC 11.3 H RBC 3.58 L Hgb 12.2 Hct 36.8 MCV 102.8 H MCH 34.1 H MCHC 33.2 RDW 13.8 Plt Count 279 MPV 10.0 Neut % (Auto) 61.7 Lymph % (Auto) 24.3 Eaton % (Auto) 12.2 H Eos % (Auto) 1.0 Baso % (Auto) 0.4 Neut # (Auto) 7.0 H Lymph # (Auto) 2.8 Eaton # (Auto) 1.4 H Eos # (Auto) 0.1 Baso # (Auto) 0.1 Abs Immat Gran (auto) 0.04 H Imm/Tot Granulo (auto) 0.4 Puncture Site Left radial ABG pH 7.478 H ABG pCO2 39.1 ABG pO2 58.2 L ABG HCO3 29.0 H ABG O2 Saturation 93.4 ABG Base Excess 5.4 H Romeo Test Pos Sodium 137 Potassium 3.7 Chloride 103 Carbon Dioxide 30.4 Anion Gap 7.3 BUN 19.0 H Creatinine 1.00 Est GFR ( Amer) >60 Est GFR (Non-Af Amer) 56 L BUN/Creatinine Ratio 19.0 Glucose 112 H Calcium 8.5 Total Bilirubin 0.3 AST 10 L ALT 17 Alkaline Phosphatase 78 Ammonia Total Protein 5.7 L Albumin 2.7 L Globulin 3.0 Albumin/Globulin Ratio 0.9 Adenovirus (PCR) Not detected C. pneumoniae DNA (PCR) Not detected Coronavirus Type OC43 Not detected Coronavirus Type HKU1 Not detected Coronavirus Type 229E Not detected Coronavirus Type NL63 Not detected Human Metapneumovir PCR Not detected M. pneumoniae (PCR) Not detected Parainfluenza PCR Not detected Parainfluenza 2 (PCR) Not detected Parainfluenza 3 (PCR) Not detected Parainfluenza 4 (PCR) Not detected RSV (RT-PCR) Not detected Entero/Rhino (PCR) Not detected SARS-CoV-2 (PCR) Not detected Bordetella pertussis (PCR) Not detected B parapertussis DNA PCR Not detected Influenza Type A (PCR) Not detected Influenza Type B (PCR) Not detected 08/27/23 10:56 WBC RBC Hgb Hct MCV MCH MCHC RDW Plt Count MPV Neut % (Auto) Lymph % (Auto) Eaton % (Auto) Eos % (Auto) Baso % (Auto) Neut # (Auto) Lymph # (Auto) Eaton # (Auto) Eos # (Auto) Baso # (Auto) Abs Immat Gran (auto) Imm/Tot Granulo (auto) Puncture Site ABG pH ABG pCO2 ABG pO2 ABG HCO3 ABG O2 Saturation ABG Base Excess Romeo Test Sodium Potassium Chloride Carbon Dioxide Anion Gap BUN Creatinine Est GFR ( Amer) Est GFR (Non-Af Amer) BUN/Creatinine Ratio Glucose Calcium Total Bilirubin AST ALT Alkaline Phosphatase Ammonia 24 Total Protein Albumin Globulin Albumin/Globulin Ratio Adenovirus (PCR) C. pneumoniae DNA (PCR) Coronavirus Type OC43 Coronavirus Type HKU1 Coronavirus Type 229E Coronavirus Type NL63 Human Metapneumovir PCR M. pneumoniae (PCR) Parainfluenza PCR Parainfluenza 2 (PCR) Parainfluenza 3 (PCR) Parainfluenza 4 (PCR) RSV (RT-PCR) Entero/Rhino (PCR) SARS-CoV-2 (PCR) Bordetella pertussis (PCR) B parapertussis DNA PCR Influenza Type A (PCR) Influenza Type B (PCR) Imaging CT scan - chest: Attestation: I have reviewed the pertinent imaging results. Radiologist's impression: IMPRESSION: 1. 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 2. No evidence of pneumonia or other acute cardiopulmonary abnormality. Chest x-ray: Attestation: I have reviewed the pertinent imaging results. Radiologist's impression: IMPRESSION: Stable right middle lobe pneumonia CT scan - head: Attestation: I have reviewed the pertinent imaging results. Radiologist's impression: IMPRESSION: No acute intracranial process. If there is sufficient clinical concern for acute brain parenchymal pathology, consider MRI for further evaluation. Incidental acute right sphenoid sinusitis. MRI - head: Attestation: I have reviewed the pertinent imaging results. Radiologist's impression: IMPRESSION: No acute intracranial process or recent infarction. Discharge Plan Discharge Disposition: Home Health Service Condition: Good Discharge Medications: New levofloxacin 750 mg tablet 750 mg PO DAILY 8 Days Qty: 8 0RF prednisone 20 mg tablet 20 mg PO DAILY Qty: 5 0RF tramadol 100 mg tablet 100 mg PO Q6H PRN (Reason: severe pain) Qty: 14 0RF Continued celecoxib 100 mg capsule 100 mg PO Q24H atorvastatin 20 mg tablet 20 mg PO DAILY carvedilol 6.25 mg tablet 6.25 mg PO Q12H amlodipine 2.5 mg tablet 2.5 mg PO DAILY duloxetine 60 mg capsule,delayed release(DR/EC) 60 mg PO DAILY tizanidine 4 mg tablet 4 mg PO Q8H PRN (Reason: muscle spasticity) acetaminophen [8 Hour Pain Reliever] 650 mg tablet extended release 650 mg PO Q8H PRN (Reason: pain) aripiprazole [Abilify] 5 mg tablet 5 mg PO DAILY Qty: 30 0RF Rx Instructions: PER [facility] - LAST FILLED 08/10/23 X30 DAYS gabapentin 600 mg tablet 600 mg PO QID Qty: 0 0RF Rx Instructions: May use alternate dosing regimen of 1200 mg (2 tabs) twice daily Activity: resume usual activities as tolerated Diet: advance to your usual diet Patient Instructions: Weakness (DC), Pneumonia (DC) Activity Restrictions/Additional Instructions: - Discuss w/ PCP large diaphragmatic hernia noted on CT Chest imaging Forms: Portal Instructions Follow Up Appointments: Follow up appt. with Audrey Aguilar CNP on @ 10:30am at [facility] office Office #: [phone]
--- NOTE | 2023-08-28 12:02 | SWNOTE1 ---
Pt is being discharged today, she had refused SNF. Pt is sitting up in bed and eating. SW asked her if she would be interested in home health coming in for a short time to help get her stronger. Pt spoke about going to pain clinic for injection, but would prefer to do therapy at the home. SW explained to her that she would not be able to get an injection at home. Pt does seem to get a little agitated and voiced she would want the therapy at home and the injection has to be done at a medical setting. SW let her know that her insurance will not cover outpt and then in the home. Pt stated she only goes to pain clinic once a year. SW let pt know SW can set up home health for now and SW let pt know if SW sets up therapy they will come in to home and encourage her to get up and move. Pt then stated she does move daily and she has to help with her grandkids at home. Pt then contradicted herself and stated she hates freaking therapy and they just throw her around and she has so much pain. SW then asked again if she would like home health and therapy coming in to the home? Pt stated she would want therapy. Pt has no preference on [employer] companies. Pt will be leaving shortly. SW let pt know SW will call with [employer] company. [facility] sent referral to [address]
--- NOTE | 2023-08-28 12:02 | CM.NOTE ---
Rounds made with Dr. Patel, ok to discharge today. Dr. Patel talked with pt regarding PT recommendations and skilled therapy. Pt refuses skilled therapy, pt states she does enough activity at home and PT just makes her pain worse.
--- NOTE | 2023-08-28 15:16 | SWNOTE1 ---
[facility] is able to accept and will see pt Thursday. SW sent over final orders.
--- NOTE | 2023-08-31 15:13 | CM.DCFOLLOWU ---
1st attempt discharge follow up call made by Susy Patel on 08/31/2023, no answer at this time
--- NOTE | 2023-09-01 15:11 | CM.DCFOLLOWU ---
Person spoke with: patient's daughter How are you feeling? she is doing well How is your pain? under control at this time Did you understand your discharge instructions? yes Do you have any questions about your discharge instructions? no Were you given any prescriptions at discharge? yes Were you able to get your prescriptions filled? yes Do you understand how to take your medications as ordered? yes Do you have any questions about your follow up appointment and do you plan to keep your follow up appointment? no questions, will go to follow up and [facility] came yesterday and met with patient Is there anything else that you would like to discuss? no Questions/Comments/Concerns/Other:
== END 2023-08-28 12:03 | disposition home health service (06) ==
LOC: ER 19:47 → MS 08-27 09:52
PROVIDERS: Emergency Medicine; Admitting Provider Family Medicine; Emergency Provider Emergency Medicine; Visit Provider Nurse Practitioner
DX: M79.7 Fibromyalgia (principal); G89.29 Other chronic pain; I10 Essential (primary) hypertension; I25.10 Atherosclerotic heart disease of native coronary artery without angina pectoris; I25.2 Old myocardial infarction; J18.9 Pneumonia, unspecified organism; J01.30 Acute sphenoidal sinusitis, unspecified; Z79.899 Other long term (current) drug therapy; G93.41 Metabolic encephalopathy; F95.9 Tic disorder, unspecified; K44.9 Diaphragmatic hernia without obstruction or gangrene; Z91.148 Patient's other noncompliance with medication regimen for other reason; Z20.822 Contact with and (suspected) exposure to COVID-19; Z87.891 Personal history of nicotine dependence
CPT/HCPCS: 0202U; 36415; 36600; 51702; 51798; 70450; 70551; 71045; 71260; 80048; 80053; 80061; 80307; 80320; 81001; 82140; 82805; 83036; 83605; 83735; 84443; 84484; 85025; 87040; 93005; 94640; 94761; 96365; 96372; 96375; 97110; 97112; 97162; 97530; 99285; G0378; Q9967